=== PATIENT | female | born 1975 | race Two or more races ===

== ENCOUNTER 2021-10-04 19:55 | Emergency (ER) | payer OTHER ==
[2021-10-04 20:43] VITALS: TEMP 98.1; BMI 26.6
[2021-10-04] MEDS ORDERED: ASPIRIN 81 MG CHEWABLE TABLETS PO ONE (21:35)
[2021-10-04 21:55] LABS: BASO % 0.9 % (0-2.0); EOS % 2.1 % (0-4.5); HEMOGLOBIN 13.8 GM/dL (10.7-15.3); LYMPH % 27.5 % (8-40); MCH 30.9 pg (25.7-33.7); MCHC 33.7 g/dl (32.0-36.0); MEAN CELL VOLUME 91.6 fl (80-96); MEAN PLT VOLUME 8.1 fl (7.5-11.1); MONO % 7.4 % (3.8-10.2); NEUT % 62.1 % (42.8-82.8); PLATELET COUNT 265 10^3/uL (134-434); RBC 4.47 M/mm3 (3.60-5.2); RDW 14.1 % (11.6-15.6); WHITE BLOOD COUNT 6.4 K/mm3 (4.0-10.0)
[2021-10-04] MEDS ORDERED: ASPIRIN 81 MG CHEWABLE TABLETS ONE (22:38)
[2021-10-05 00:38] LABS: CALCIUM 9.1 mg/dL (8.5-10.1)
[2021-10-05 00:39] LABS: ALBUMIN 3.3 g/dl (3.4-5.0); BLOOD UREA NITROGEN 9.3 mg/dL (7-18)
[2021-10-05 00:42] LABS: CREATININE 0.5 mg/dL (0.55-1.3)
[2021-10-05 00:44] LABS: BILIRUBIN,TOTAL 0.2 mg/dL (0.2-1); TOT PROT 6.8 g/dl (6.4-8.2)
[2021-10-05 01:17] VITALS: BP 140/95; PULSE 99; RESP 16
== END 2021-10-05 01:17 | disposition home or self-care (01) ==
LOC: JER 19:55
DX: R07.9 Chest pain, unspecified (principal)
CPT/HCPCS: 36415; 71046-TC-FY; 80053; 84484; 84703; 85025; 93005; 93010; 99285-25